=== PATIENT | female | born 1995 | race African-American/Black ===

== ENCOUNTER 2016-09-10 05:26 | Emergency (ER) | payer OTHER ==
--- NOTE | ~2016-09-10 | CR229 ---
[facility] A Service of [facility] & [facility] RADIOLOGY TEXT RESULTS PATIENT: BLAYNE TURCIOS LOCATION: [facility] : [birth year] UNIT #: [id number] AGE: [address]: Hair Jenkins MD SEX: F ORDER DR: [id number] [facility] [address] [place], [place] [address] [id number] E MR#: [id number] Acc #: [id number] NAME: BLAYNE TURCIOS : 1995 SEX: F STUDY DATE/TIME: 09/10/2016 6:27 UNIT: [facility] ROOM: STUDY DESCRIPTION: CR Shoulder Min 2 View Lt Attending Physician: Hair Jenkins M.D. Ordering Physician: Hair Jenkins M.D. Primary Care Physician: Primary Care Physician No MEDICAL IMAGING REPORT This report is preliminary unless electronic signature is present EXAM Left shoulder 2 views 09/10/2016 HISTORY Left shoulder pain for 3 days. FINDINGS Normal. Dictated by... Yogesh Menjivar M.D. THIS IS AN ELECTRONICALLY VERIFIED REPORT Yogesh Menjivar M.D. at 09/10/2016 2:12 PM MARIN/bimal TD: 09/10/2016 08:23 JOB #: [id number] MEDICAL IMAGING REPORT Page 1 of 1 COPY
--- NOTE | ~2016-09-10 | CR72 ---
[facility] A Service of [facility] & [facility] RADIOLOGY TEXT RESULTS PATIENT: BLAYNE TURCIOS LOCATION: [facility] : [birth year] UNIT #: [id number] AGE: [address]: Hair Jenkins MD SEX: F ORDER DR: [id number] [facility] [address] [place], [place] [address] [id number] E MR#: [id number] Acc #: [id number] NAME: BLAYNE TURCIOS : 1995 SEX: F STUDY DATE/TIME: 09/10/2016 6:26 UNIT: [facility] ROOM: STUDY DESCRIPTION: CR Chest Single View Portable Attending Physician: Hair Jenkins M.D. Ordering Physician: Hair Jenkins M.D. Primary Care Physician: Primary Care Physician No MEDICAL IMAGING REPORT This report is preliminary unless electronic signature is present EXAM Portable chest one-view , 09/10/2016 COMPARISON None HISTORY Chest pain, short of air for 3 days. FINDINGS Submaximal inspiration. Question mild cardiomegaly though heart size may be exaggerated by submaximal inspiratory effort. No consolidation or effusion or pneumothorax, otherwise negative. Dictated by... Yogesh Menjivar M.D. THIS IS AN ELECTRONICALLY VERIFIED REPORT Yogesh Menjivar M.D. at 09/10/2016 2:12 PM MARIN/riki TD: 09/10/2016 08:06 JOB #: [id number] MEDICAL IMAGING REPORT Page 1 of 1 COPY
--- NOTE | ~2016-09-10 | EKG ---
PATIENT: BLAYNE TURCIOS UNIT #: [id number] Ventricular Rate: 76 BPM Atrial Rate: 76 BPM P-R Interval: 174 ms QRS Duration: 72 ms Q-T Interval: 380 ms QTC Calculation(Bezet): 427 ms P [place]: 37 degrees Calculated R [place]: 10 degrees Calculated T [place]: 9 degrees Diagnosis Line: Normal sinus rhythm Diagnosis Line: Normal ECG Diagnosis Line: When compared with ECG of 10-SEP-2016 06:35, Diagnosis Line: (unconfirmed) Diagnosis Line: Previous ECG has undetermined rhythm, needs review Diagnosis Line: Confirmed by DAMIÁN CHAVES MD ([id number]) on 09/12/2016 Diagnosis Line: 4:22:02 PM INTERPRETING MD: ANDIE YORK
[2016-09-10 06:20] LABS: POC - CKMB <1.0 ng/mL (0.0-7.9); POC - TROPONIN <0.05 ng/mL (<=0.05)
[2016-09-10 06:33] LABS: BASOPHIL# 0.1 X10e3 (0-0.3); BASOPHIL% 0.9 % (0-2.5); EOSINOPHIL# 0.2 X10e3 (0-0.7); EOSINOPHIL% 3.5 % (0.0-7.0); HEMATOCRIT 42.2 % (35.0-45.0); HEMOGLOBIN 13.5 gm/dL (12.0-16.0); LYMPHOCYTE# 2.4 X10e3 (1.0-3.5); LYMPHOCYTE% 36.6 % (17.0-45.0); MEAN CELL VOLUME 82.7 FL (83-96); MEAN CORPUSCULAR HEMOGLOBIN 26.4 PG (28-34); MEAN PLATELET VOLUME 9.4 FL (6.5-11.5); MONOCYTE# 0.5 X10e3 (0-1.0); NEUTROPHIL# 3.3 X10e3 (1.5-7.1); PLATELET COUNT 274 X10e3 (140-420); RED CELL DISTRIBUTION WIDTH 14.5 % (11.0-15.5); WHITE BLOOD COUNT 6.4 X10e3 (4.0-10.5)
[2016-09-10 06:36] LABS: DIFF IND NO
== END 2016-09-10 07:00 | disposition home or self-care (01) ==
LOC: CED 05:26
PROVIDERS: Emergency Medicine
DX: M25.512 Pain in left shoulder (principal); R07.9 Chest pain, unspecified
CPT/HCPCS: 36415; 71010; 73030; 82553; 84484; 85025; 93005; 96374; 99284; J1885